=== PATIENT | male | born 1985 | race Caucasian/White ===

== ENCOUNTER 2016-04-05 00:03 | Emergency (ER) | payer OTHER ==
[~2016-04-05] VITALS: Ht 175.3 cm; Wt 91.6 kg
[~2016-04-05 00:03] MED LIST: BENTYL20 MG PO; DIVALPROEX SOD500 M1 PO; GABAPENTIN400 M1 PO; IMODIUM2 MG PO; KEPPRA750 MG PO; PROPRANOLOL HCL60 MG PO; REMERON30 M1 PO; TRAZODONE HCL50 MG PO; VITAMIN D31000 IU PO; ZANTAC 150MG150 MG PO
--- NOTE | 2016-04-05 01:00 | ED GI/GU/ABDOMINAL COMPLAINT ---
History of Present Illness General Chief Complaint: Male Genitourinary Problems Stated Complaint: "PAIN IN MY BLADDER, BURNING WHEN I PEE" Source: patient Exam Limitations: no limitations Vital Signs & Intake/Output Vital Signs & Intake/Output Vital Signs Date Time Temp Pulse Resp B/P Pulse O2 O2 Flow FiO2 Ox Delivery Rate 04/05 0200 97.5 69 20 95/57 97 Room Air 04/05 0046 Room Air 04/05 0038 97.7 70 20 94/58 96 Room Air Allergies Coded Allergies: amoxicillin (Intermediate, CDIFF 04/05/16) Reconcile Medications Cholecalciferol (Vitamin D3) 1,000 IU TAB 1 TAB PO DAILY SUPPLEMENT (Reported ) Dicyclomine Hydrochloride (Bentyl) 20 MG TAB 1 TAB PO Q6P PRN ABD PAIN Divalproex Sodium 500 MG TCP 2 TAB PO BID UNKNOWN (Reported) Doxycycline Hyclate 100 MG TABLET 1 TAB PO BID UROLOGIC Gabapentin 400 MG TAB 3 TAB PO TID UNKNOWN (Reported) Levetiracetam (Keppra) 750 MG TAB 2 TAB PO TID SEIZURES (Reported) Loperamide Hydrochloride (Imodium) 2 MG CAP 1 CAP PO SEE ADMIN CRITERIA PRN DIARRHEA 2 CAPS AFTER 1ST LOOSE STOOL THEN ONE CAP AFTER EACH LOOSE STOOL UP TO 7 PER DAY Mirtazapine (Remeron) 30 MG TAB 1 TAB PO QPM SLEEP (Reported) Phenazopyridine HCl (Pyridium) 100 MG TABLET 1-2 TAB PO TID PRN PAINFUL URINATION PROPRANOLOL HCL (Propranolol HCl ER) 60 MG CER 1 TAB PO BID UNKNOWN (Reported ) Ranitidine (Zantac) 150 MG TAB 2 TAB PO BID GI (Reported) TRAZODONE HCL (Trazodone HCl) 50 MG TAB 1 TAB PO AT BEDTIME SLEEP (Reported) Triage Note: 30yo MALE TO TRIAGE W/CO LOW ABD PAIN, AND BURNING THAT TRAVELS TO HIS PENIS. NO CHANGE IN PAIN AFTER URINATION. Triage Nurses Notes Reviewed? yes Onset: Gradual Duration: week(s):, waxing and waning Timing: recent history Quality/Severity: burning, cramping Location: suprapubic Radiation: no radiation Activities at Onset: none Prior Abdominal Problems: similar symptoms Sexually Active: No Last Time You Were Sexual: greater than 2 months ago Sexual Orientation: Heterosexual Modifying Factors: Worsens With: palpation, urinating. Associated Symptoms: dysuria, lower abdominal discomfort HPI: 30 yo gentleman with suprapubic discomfort since 2015. He notes that [facility]/S of lower abdomen and kidneys without improvement. He has tried pyridium and oxybutin without improvement. He note pain in lower mid abdomen, without penile discharge. No diarrhea, constipation. He recently had a negative colonoscopy. Past History Travel History Traveled to [place] past 21 day No Medical History Any Pertinent Medical History? see below for history Neurological: seizure, BRAIN TUMOR History of CDIFF: No Surgical History Surgical History: BRAIN SURGERY SHUNT Psychosocial History What is your primary language Vietnamese Tobacco Use: Never used Family History Hx Contributory? No Review of Systems Review of Systems Constitutional: Reports: no symptoms. EENTM: Reports: no symptoms. Respiratory: Reports: no symptoms. Cardiovascular: Reports: no symptoms. GI: Reports: no symptoms. Genitourinary: Reports: no symptoms. Musculoskeletal: Reports: no symptoms. Skin: Reports: no symptoms. Neurological/Psychological: Reports: no symptoms. Hematologic/Endocrine: Reports: no symptoms. Immunologic/Allergic: Reports: no symptoms. All Other Systems: Reviewed and Negative Physical Exam Physical Exam General Appearance: well developed/nourished, mild distress Head: atraumatic, normal appearance Eyes: Bilateral: normal appearance. Ears, Nose, Throat, Mouth: hearing grossly normal, moist mucous membrane, Tympanic normal Neck: normal inspection, supple, full range of motion, normal alignment Respiratory: normal breath sounds, chest non-tender, no respiratory distress, quiet respiration, lungs clear Cardiovascular: regular rate/rhythm, edema, gallop Gastrointestinal: normal bowel sounds, soft, non-tender Rectal: tender prostate with discomfort radiating down to tip of penis with palpation. Male Genitals: normal genitalia, normal cremaster reflex, no hernia Back: normal inspection Extremities: normal range of motion Neurologic/Psych: no motor/sensory deficits, awake, alert, oriented x 3 Core Measures ACS in differential dx? No Severe Sepsis Present: No Septic Shock Present: No Progress Differential Diagnosis: prostatitis... i doubt tesiticular disease given negative prior work up. Plan of Care: Orders Procedure Date/time Status Add-on Test (ER Only) 04/05 0127 Active GC DNA PROBE 04/056 Active CHLAMYDIA DNA PROBE 04/05 35 Active CULTURE,URINE 01/19 0005 Active URINALYSIS 04/05 4 Complete Laboratory Tests 04/05/1635: Urine Color YEL, Urine Clarity CLEAR, Urine pH 7.0, Ur Specific [place] 1.015, Urine Protein NEG, Urine Ketones NEG, Urine Nitrite NEG, Urine Bilirubin NEG, Urine Urobilinogen 0.2, Ur Leukocyte Esterase NEG, Ur Microscopic EXAM NOT REQUIRED, Urine Hemoglobin NEG, Urine Glucose NEG Microbiology 04/05 35 URINE ROUT: GC DNA Probe - RECD 04/05 35 URINE ROUT: Chlamydia DNA Probe (EVONNE) - RECD 04/05 35 URINE ROUT: Urine Culture - RECD Initial ED EKG: none Departure Departure Disposition: HOME OR SELF CARE Condition: Stable Clinical Impression Primary Impression: Prostatitis Referrals: UNKNOWN (PCP/Family) Departure Forms: Customer Survey General Discharge Information Prescriptions: Current Visit Scripts Doxycycline Hyclate 1 TAB PO BID #20 TAB Phenazopyridine HCl (Pyridium) 1-2 TAB PO TID PRN PAINFUL URINATION #20 TAB Ref 1 Comments given tender prostate, will treat as prostatitis with doxy/ceftriaxone... discussed close follow up with pmd and urology at [facility]... also referred to urology locally for second opinion. close follow up advised.
[2016-04-05] MEDS ORDERED: PYRIDIUM100 M1 PO (01:30)
[2016-04-05] MEDS ORDERED: DOXYCYCLINE HY100 M4 PO (01:30)
[2016-04-05 02:00] VITALS: BP 95/57
== END 2016-04-05 02:01 ==
LOC: ERH 00:03
DX: N41.9 Inflammatory disease of prostate, unspecified (principal)
CPT/HCPCS: 81003; 87086; 87491; 87591; 96372; J0696